=== PATIENT | female | born 1960 | race Caucasian/White ===

== ENCOUNTER → 2016-05-16 | Outpatient (CLI) | payer OTHER ==
--- NOTE | 2016-05-17 08:05 | DX ---
DEXA Bone Densitometry Technique: DEXA scan was performed on [employer] [facility] Bone Densitometer Indication: Hyperparathyroidism Comparator Study: April 2015 Results: Lumbar Spine BMD: 0.953 T-score: -0.9 Prior BMD: 0.898 % change: +6.1% Total Hip (Right) BMD: 0.808 T-score: -1.1 Prior BMD: 0.779 % Change: +3.6% Femoral Neck (Right) BMD: 0.613 T-score: -2.1 Total Hip (Left) BMD: 0.851 T-score: -0.7 Prior BMD: 0.789 % change: +7.9% Femoral Neck (Left) BMD: 0.691 T-score: -1.4 1/3 Radius BMD: 0.682 T-score: 0.0 % change: -3.0% CONCLUSION: Osteopenia In comparison the prior study from April 2015, the patient's measured BMD in the lumbar spine and b oth hips has increased significantly. Patient measured BMD in the forearm has decreased significantly . ADDITIONAL COMMENTS: By FRAX calculation, the estimated 10 year probability of any major osteoporotic fracture is 6.1%. Th e estimated 10 year probability of hip fracture 0.5%. Consider repeating the study in 2 years NOTE: The risk of osteoporotic fractures increases approximately twofold for each 1.0 SD decrease in T-score. The T-score represents the standard deviations from a young normal, same sex, reference po pulation. Low bone density is not the only risk factor for fracture. Clinical factors to consider include fall risk, previous osteoporotic fractures, family history of fractures, smoking, and low body weight. Patients who have an unexpectedly low BMD may need to be evaluated for secondary causes of low bone m ineral density. In comparing the present study to a prior study, lack of a significant increase or decrease in BMD ma y signify efficacy of the patient's present treatment. Bone mineral density measurements performed with densitometers produced by different manufacturers ar e not comparable. For the most reproducible BMD measurement, subsequent exams should be performed on the same densitometer.
== END ==
LOC: BMCIMAGING 13:59
PROVIDERS: ATTEND Internal Medicine Endocrinology, Diabetes & Metabolism
DX: Z13.820 Encounter for screening for osteoporosis (principal); M85.80 Other specified disorders of bone density and structure, unspecified site

== ENCOUNTER → 2018-08-23 | Outpatient (CLI) | payer OTHER | LOC: FIMAGING 14:44 | PROVIDERS: ATTEND Midwife | DX: Z12.31 Encounter for screening mammogram for malignant neoplasm of breast (principal); Z80.3 Family history of malignant neoplasm of breast ==